=== PATIENT | female | born 1930 | race Caucasian/White ===

== ENCOUNTER 2017-09-25 11:58 | Inpatient (IN) | payer OTHER ==
[~2017-09-25] VITALS: Ht 154.9 cm; Wt 45.4 kg
[2017-09-25] MEDS ORDERED: LOSARTAN POTASS50 MG (13:02)
[2017-09-25] MEDS ORDERED: DONEPEZIL HCL5 MG (13:02)
[2017-09-25] MEDS ORDERED: NAMENDA5 MG (13:03)
[2017-09-25] MEDS ORDERED: TRAZODONE HCL50 MG (13:03)
[2017-09-25] MEDS ORDERED: CLONAZEPAM0.25 MG (13:03)
[2017-09-25] MEDS ORDERED: CITALOPRAM HBR20 MG (13:03)
[2017-09-25] MEDS ORDERED: ASA81 MG (13:04)
[2017-09-25] MEDS ORDERED: INMODIUN (13:05)
[2017-10-03] MEDS ORDERED: DONEPEZIL HCL5 MG PO (18:33)
[2017-10-03] MEDS ORDERED: PYRIDOXINE HCL100 M1 PO (18:33)
[2017-10-03] MEDS ORDERED: Neurin-Sl Tablet Sl SL (18:33)
[2017-10-03] MEDS ORDERED: CLONAZEPAM0.5 MG PO (18:33)
[2017-10-03] MEDS ORDERED: Seroquel PO (18:33)
[2017-10-03] MEDS ORDERED: ASA81 MG PO (18:33)
[2017-10-03] MEDS ORDERED: NAMENDA5 MG PO (18:33)
[2017-10-03] MEDS ORDERED: KEPPRA500 MG PO (18:33)
== END 2017-10-03 21:08 | disposition home health service (06) | DRG 101 ==
LOC: ER 11:58 → MEDJ 17:10
PROC: 4A033R1 Measurement of Arterial Saturation, Peripheral, Percutaneous Approach (ICD-10-PCS; principal; 2017-09-25)
PROC: 30233N1 Transfusion of Nonautologous Red Blood Cells into Peripheral Vein, Percutaneous Approach (ICD-10-PCS; 2017-10-01)
DX: G40.89 Other seizures (principal); D68.8 Other specified coagulation defects; G30.8 Other Alzheimer's disease; F02.80 Dementia in other diseases classified elsewhere, unspecified severity, without behavioral disturbance, psychotic disturbance, mood disturbance, and anxiety; I12.9 Hypertensive chronic kidney disease with stage 1 through stage 4 chronic kidney disease, or unspecified chronic kidney disease; N18.2 Chronic kidney disease, stage 2 (mild); M81.0 Age-related osteoporosis without current pathological fracture; Z66 Do not resuscitate; D64.89 Other specified anemias; I83.93 Asymptomatic varicose veins of bilateral lower extremities; Z74.01 Bed confinement status; L89.150 Pressure ulcer of sacral region, unstageable; Z78.1 Physical restraint status; Z91.81 History of falling; R40.2442 Other coma, without documented Glasgow coma scale score, or with partial score reported, at arrival to emergency department; E03.8 Other specified hypothyroidism

== ENCOUNTER 2017-10-27 16:41 | Inpatient (IN) | payer OTHER ==
[~2017-10-27] VITALS: Ht 157.5 cm; Wt 45.4 kg
[~2017-10-27 16:41] MED LIST: ASA81 MG; ASA81 MG PO; CITALOPRAM HBR20 MG; CLONAZEPAM0.25 MG; CLONAZEPAM0.5 MG PO; DONEPEZIL HCL5 MG; DONEPEZIL HCL5 MG PO; INMODIUN; KEPPRA500 MG PO; LOSARTAN POTASS50 MG; NAMENDA5 MG; NAMENDA5 MG PO; Neurin-Sl Tablet Sl SL; PYRIDOXINE HCL100 M1 PO; Seroquel PO; TRAZODONE HCL50 MG
[2017-10-27] MEDS ORDERED: LOSARTAN POTASS25 MG (17:13)
[2017-10-27] MEDS ORDERED: ALPRAZOLAM0.5 MG (17:13)
[2017-10-27] MEDS ORDERED: VITAMIN D3400 UNI1 (17:14)
[2017-10-27] MEDS ORDERED: CLONAZEPAM0.5 MG (17:15)
== END 2017-11-03 13:33 | disposition expired | DRG 592 ==
LOC: ER 16:41 → SEC-K 10-28 14:07 → MEDJ 10-28 14:07
PROC: 3E0F7GC Introduction of Other Therapeutic Substance into Respiratory Tract, Via Natural or Artificial Opening (ICD-10-PCS; principal; 2017-10-28)
PROC: CW1 Nuclear Medicine, Anatomical Regions, Planar Nuclear Medicine Imaging (ICD-10-PCS; 2017-10-28)
PROC: 8E0ZXY6 Isolation (ICD-10-PCS; 2017-10-28)
PROC: 30233N1 Transfusion of Nonautologous Red Blood Cells into Peripheral Vein, Percutaneous Approach (ICD-10-PCS; 2017-10-29)
PROC: 05H433Z Insertion of Infusion Device into Left Innominate Vein, Percutaneous Approach (ICD-10-PCS; 2017-10-30)
PROC: CW1NLZZ Planar Nuclear Medicine Imaging of Whole Body using Gallium 67 (Ga-67) (ICD-10-PCS; 2017-10-30)
PROC: 3E0436Z Introduction of Nutritional Substance into Central Vein, Percutaneous Approach (ICD-10-PCS; 2017-10-31)
DX: L89.154 Pressure ulcer of sacral region, stage 4 (principal); N17.0 Acute kidney failure with tubular necrosis; G40.89 Other seizures; N39.0 Urinary tract infection, site not specified; D68.8 Other specified coagulation defects; M86.18 Other acute osteomyelitis, other site; Z74.01 Bed confinement status; Z91.81 History of falling; Z66 Do not resuscitate; M81.0 Age-related osteoporosis without current pathological fracture; B95.2 Enterococcus as the cause of diseases classified elsewhere; B95.61 Methicillin susceptible Staphylococcus aureus infection as the cause of diseases classified elsewhere; D50.8 Other iron deficiency anemias; I12.9 Hypertensive chronic kidney disease with stage 1 through stage 4 chronic kidney disease, or unspecified chronic kidney disease; N18.2 Chronic kidney disease, stage 2 (mild); D63.1 Anemia in chronic kidney disease; G30.1 Alzheimer's disease with late onset; F02.80 Dementia in other diseases classified elsewhere, unspecified severity, without behavioral disturbance, psychotic disturbance, mood disturbance, and anxiety; B96.6 Bacteroides fragilis [B. fragilis] as the cause of diseases classified elsewhere; I83.93 Asymptomatic varicose veins of bilateral lower extremities; I46.8 Cardiac arrest due to other underlying condition; Z78.1 Physical restraint status